=== PATIENT | male | born 1950 | race Caucasian/White ===

== ENCOUNTER 2023-12-31 11:34 | Day surgery (SDC) | payer MEDICARE, BC ==
[~2023-12-31] VITALS: Ht 177.8 cm; Wt 94.2 kg
[2023-12-31] VITALS (10 sets, daily range): BP systolic 130–151; BP diastolic 58–105; PULSE 58–78; RESP 11–16; TEMP 98; O2SAT 96–98
[~2023-12-31 11:34] MED LIST: AMLO1CAP77 PO; APIX5TAB3 PO; ATEN-169 PO; SIMV-342 PO
[2023-12-31] MEDS ORDERED: normal saline 1000ml 1,000 ML IV SCH (11:55)
[2023-12-31] MEDS ORDERED: FINA5TAB12 PO (12:08)
[2023-12-31] MEDS ORDERED: AMLO-381 PO (12:08)
[2023-12-31] MEDS ORDERED: MULT-1249 PO (12:08)
[2023-12-31] MEDS ORDERED: MAGN500C4 PO (12:08)
[2023-12-31] MEDS ORDERED: FLO0.4C PO (12:08)
[2023-12-31] MEDS ORDERED: SOTA80TA73 PO (12:08)
[2023-12-31 12:18] LABS: BASOPHILS # (AUTO) 0.1 X10'3 (0-0.2); BASOPHILS % (AUTO) 0.9 % (0-1); EOSINOPHILS # (AUTO) 0.1 X10'3 (0-0.9); HEMOGLOBIN 16.4 g/dl (14.0-17.9); LYMPHOCYTES # (AUTO) 1.7 X10'3 (1.1-4.8); LYMPHOCYTES % (AUTO) 27.4 % (21-51); MEAN CORPUSCULAR HGB CONC 34.2 g/dL (33.0-36.5); MEAN CORPUSCULAR VOLUME 87.6 FL (78-98); MEAN PLATELET VOLUME 8.6 FL (7.4-10.4); MONOCYTES # (AUTO) 0.6 X10'3 (0-0.9); MONOCYTES % (AUTO) 9.7 % (2-12); NEUTROPHILS # (AUTO) 3.7 X10'3 (1.8-7.7); PLATELET COUNT 184 X10'3 (140-440); RED BLOOD COUNT 5.48 X10'6 (4.70-6.10); RED CELL DISTRIBUTION WIDTH 13.9 % (11.5-14.5); WHITE BLOOD COUNT 6.1 X10'3 (4.5-11.0)
[2023-12-31 12:24] LABS: ALBUMIN 3.7 G/DL (3.4-5.0); ANION GAP 6 (8-16); BLOOD UREA NITROGEN 20 MG/DL (7-18); BUN/CREATININE RATIO 16.1 (10.0-20.0); CHLORIDE 104 MMOL/L (99-107); CREATININE 1.24 MG/DL (0.60-1.10); GLUCOSE 127 MG/DL (70-104); POTASSIUM 3.9 MMOL/L (3.5-5.1); SODIUM 137 MMOL/L (135-145); TOTAL CARBON DIOXIDE 26.8 MMOL/L (24-32); eCRCL 54 ML/MIN; eGFR 57 ML/MIN
[2023-12-31 12:26] LABS: INR 1.1 INR; PROTHROMBIN TIME 11.4 SECONDS (9.0-12.0)
[2023-12-31] MEDS: fentaNYL/PF 50MCG/1 ML 2ML syringe IV ONE (14:24)
[2023-12-31] MEDS: MIDAZolam 1mg/ml 10ml vial IV ONE (14:24)
== END 2023-12-31 15:45 | disposition home or self-care (01) ==
LOC: SSTAY O 11:34
PROVIDERS: ATTEND Student in an Organized Health Care Education/Training Program
DX: I48.0 Paroxysmal atrial fibrillation (principal); I49.3 Ventricular premature depolarization; I10 Essential (primary) hypertension; E11.9 Type 2 diabetes mellitus without complications; E78.00 Pure hypercholesterolemia, unspecified; G47.33 Obstructive sleep apnea (adult) (pediatric); Z79.01 Long term (current) use of anticoagulants; Z79.899 Other long term (current) drug therapy
CPT/HCPCS: 36415; 80048; 85025; 85610; 92960; 93005; A6258; J2250; J3010; J7030; A6402